=== PATIENT | female | born 1945 ===

== ENCOUNTER 2024-09-18 06:39 | Day surgery (SDC) | payer OTHER ==
[2024-09-18] MEDS ORDERED: fentaNYL CITRATE 50 MCG/ML AMPUL IV ONE (11:45)
[2024-09-18] MEDS ORDERED: MIDAZOLAM HCL 2 MG/2 ML VIAL IV ONE (11:45)
[2024-09-18] MEDS ORDERED: DIPHENHYDRAMINE HCL 50 MG/ML VIAL 1ML IV ONE (11:45)
[2024-09-18] MEDS ORDERED: ENALAPRILAT DIHYDRATE 2.5 MG/2 ML VIAL IV ONE (12:00)
== END 2024-09-18 13:15 | disposition home or self-care (01) ==
LOC: AMB-ENDOS 06:39
PROVIDERS: ATTEND Surgery
DX: D12.3 Benign neoplasm of transverse colon (principal); K63.5 Polyp of colon; K64.8 Other hemorrhoids